=== PATIENT | female | born 1980 | race African-American/Black ===

== ENCOUNTER 2018-10-14 14:01 | Emergency (ER) | payer SELFPAY, OTHER ==
[2018-10-14] MEDS: SOD CHLORIDE 0.9% 1,000 ML IV (15:26)
[2018-10-14] MEDS: ONDANSETRON 4 MG INJ IV (15:26)
[2018-10-14] MEDS: KETOROLAC 30 MG INJ IV (15:26)
[2018-10-14] MEDS: PROCHLORPERAZINE 10 MG INJ IV (15:40)
== END 2018-10-14 16:19 | disposition home or self-care (01) ==
LOC: FTE 16:19
DX: G43.909 Migraine, unspecified, not intractable, without status migrainosus (principal)
CPT/HCPCS: 96361; 96374; 96375; 99284-25